=== PATIENT | female | born 1950 | race Caucasian/White ===

== ENCOUNTER → 2023-05-16 09:54 | Outpatient (REF) | payer MEDICARE, SELFPAY | LOC: WDC 09:54 | PROVIDERS: ATTENDING PHYSICIAN Obstetrics & Gynecology; FAMILY PHYSICIAN Family Medicine | DX: R92.8 Other abnormal and inconclusive findings on diagnostic imaging of breast (principal) | CPT/HCPCS: 76642 ==

== ENCOUNTER → 2023-05-18 13:04 | Outpatient (REF) | payer MEDICARE, SELFPAY | LOC: MRI 13:04 | PROVIDERS: ATTENDING PHYSICIAN Physical Medicine & Rehabilitation Pain Medicine; FAMILY PHYSICIAN Family Medicine | DX: M17.0 Bilateral primary osteoarthritis of knee (principal) | CPT/HCPCS: 73721 ==

== ENCOUNTER → 2023-05-25 06:46 | Outpatient (REF) | payer MEDICARE, SELFPAY ==
--- NOTE | 2023-05-25 09:41 | OID.BR.INTR ---
[facility] Breast Navigator - Initial
- -
Date of Contact: 05/25/23
Met with patient. Patient given written information on navigator services and support services available at [facility]. Will follow up as needed per protocol.
== END ==
LOC: WDC 06:46
PROVIDERS: ATTENDING PHYSICIAN Obstetrics & Gynecology; FAMILY PHYSICIAN Family Medicine
DX: R92.1 Mammographic calcification found on diagnostic imaging of breast (principal); R92.8 Other abnormal and inconclusive findings on diagnostic imaging of breast
CPT/HCPCS: 88305; 19081; 76098; 88341; 88342; 88360; A4648

== ENCOUNTER 2023-07-01 12:25 | Emergency (ER) | payer MEDICARE, SELFPAY ==
[2023-07-01 12:32] VITALS: BP 127/79
[2023-07-01 13:05] VITALS: BMI 33.5
--- NOTE | 2023-07-01 13:48 | ED.SKININJ ---
HPI-Injury
General
Chief Complaint: Eye Problems
Source: patient
Exam Limitations: none
Time Seen by Provider: 07/01/23 13:32
Travel History
Have you had any contact with someone who has COVID-19?: No
Do you have any symptoms of coronavirus? Fever > 100 degrees, chills, cough, shortness of breath, sore throat, loss of taste or smell, muscle aches, or headache?: No
History of Present Illness-Injury
Initial Injury comments:
72 year old female presents with redness to the right eyelid starting today. This was preceded by similar redness to the left eyelid. She was using warm compresses and she believes she had a stye on her left side that is resolving but now has 1 on
the right side. She denies any new vision change. She is due for lumpectomy this Sunday and this is concerning that she may be prohibited from having her surgery because of this. No fever. She is nondiabetic. No other complaints at this time
Past History
Past History
ED Past Medical History: Cancer, GERD, NIDDM and Other
ED Past Surgical History: Cardiac (Pacemaker) and Other (Hysterectomy, partial thyroidectomy, lipoma resection from right shoulder)
Social History
Tobacco: Non-smoker
Alcohol: None
Drug: None
Personal:
Living: with family
Employment: Disabled
Phy Exam
Physical Exam
Physical Exam:
General: Well-appearing female no acute respiratory distress
HEENT: Normocephalic right inferior lid slightly erythematous and swollen. Eversion of lid provides a papule noted on the mucosal this at the base of the eyelash. No periorbital swelling. No proptosis. Extraocular motions are painless and
intact. Surrounding skin is without fluctuance or induration
Course
Orders/Labs/Results
Orders:
Orders
07/01/23 14:28
Gentamicin [Genoptic 0.3% Eye Drops] See Dose Instructions OPHTH NOW STA
Vital Signs
Initial and Last Documented VS:
Initial Vital Signs
Temp Pulse Resp BP Pulse Ox
98.9 F 66 18 127/79 97
07/01/23 12:32 07/01/23 12:32 07/01/23 12:32 07/01/23 12:32 07/01/23 12:32
Last Documented Vital Signs
Temp Pulse Resp BP Pulse Ox
98.9 F 66 18 127/79 97
07/01/23 12:32 07/01/23 12:32 07/01/23 12:32 07/01/23 12:32 07/01/23 12:32
MDM/Problems Addressed
Differential Diagnosis Includes:
Suspect underlying stye to the right eye. Will recommend continued warm compresses. Consider antibiotic drops to cover. Patient concerned that this may prohibit her from having her lumpectomy this Sunday in 2 days. Reached out to breast surgery
for notifications.
*Critical Care Note
Total Time (30-74mins, 75-104mins- exclusive of procedures): Not Applicable
ED Attending Note
-
Portions of this chart may have been created with voice recognition software.� Occasional wrong word or��sound alike� substitutions may have occurred due to the inherent limitations of voice recognition software.
Discharge Plan
Departure
Patient Disposition: Home (Routine Discharge)
Date of Disposition: 07/01/23
Time of Disposition: 14:34
Patient with high blood pressure during this ER visit?: No
Discharge Problem:
Hordeolum externum (stye)
Instructions: Stye (hordeolum)
Prescriptions:
No Action
furosemide 40 MG tablet
40 mg PO DAILY
cetirizine 10 MG tablet
10 mg PO DAILY
lamotrigine 100 MG tablet
300 mg PO DAILY
esomeprazole magnesium [Nexium] 20 MG capsule,delayed release(DR/EC)
20 mg PO Q48H
vilazodone [Viibryd] 40 MG tablet
40 mg PO DAILY
levothyroxine [Synthroid] 150 mcg Tablet
150 mcg PO DAILY
atorvastatin
PO DAILY
tramadol 50 mg tablet
50 mg PO Q6HPRN PRN (Reason: severe pain/breakthrough pain) Qty: 12 0RF
acetaminophen [Tylenol Extra Strength] 500 mg tablet
1,000 mg PO Q6HPRN PRN (Reason: mild pain) Qty: 1 0RF
ibuprofen 200 mg tablet
400 mg PO Q6HPRN PRN (Reason: moderate pain) Qty: 1 0RF
tramadol 50 mg tablet
50 mg PO Q6HPRN PRN (Reason: severe pain/breakthrough pain) Qty: 12 0RF
Referrals:
Antolin Borja DO [Family Provider] -
Activity Restrictions/Additional Instructions:
Continue with warm compresses to both eyes. Unfortunately we are unable to get a hold of the breast surgeon today. If you want a hold off on the drop until tomorrow until you can talk to them this is reasonable.
Interventions
Interventions:
*Risk Screen - Suicide Last Done: 07/01/23 12:32
*General Assessment Last Done: 07/01/23 12:32
*Neglect/Abuse Screening Last Done: 07/01/23 12:32
ED- Fall Risk Assessment Last Done: 07/01/23 13:05
*ED COVID-19 Vaccine History Last Done: 07/01/23 13:05
*Nursing Disposition Last Done: 07/01/23 15:03
Discharge Date and Time
Discharge Date/Time: 07/01/23 14:50
Print Language: VIETNAMESE
--- NOTE | 2023-07-01 14:40 | EDRN ---
Reviewed discharge instructions with patient. Verbalized understanding. Ambulated with steady gait to the lobby.
[2023-07-01] MEDS: GENOPTIC 0.3% EYE DROPS 1 DROP OPHTH (14:41)
== END 2023-07-01 14:50 | disposition home or self-care (01) ==
LOC: EMR 12:25
PROVIDERS: EMERGENCY PHYSICIAN Emergency Medicine; FAMILY PHYSICIAN Family Medicine
DX: H00.013 Hordeolum externum right eye, unspecified eyelid (principal); E11.9 Type 2 diabetes mellitus without complications; K21.9 Gastro-esophageal reflux disease without esophagitis; Z95.0 Presence of cardiac pacemaker; Z85.9 Personal history of malignant neoplasm, unspecified
CPT/HCPCS: 99283

== ENCOUNTER → 2023-07-02 11:02 | Outpatient (REF) | payer MEDICARE, SELFPAY | LOC: WDC 11:02 | PROVIDERS: ATTENDING PHYSICIAN Surgery | DX: C50.411 Malignant neoplasm of upper-outer quadrant of right female breast (principal) | CPT/HCPCS: 19281; 38792; A4648; A9541 ==

== ENCOUNTER → 2023-07-03 07:42 | Outpatient (REF) | payer MEDICARE, SELFPAY | LOC: WDC 07:42 | PROVIDERS: ATTENDING PHYSICIAN Surgery | DX: C50.411 Malignant neoplasm of upper-outer quadrant of right female breast (principal) | CPT/HCPCS: 88305; 88307; 88332; 76098; 88331; 88341; 88342 ==

== ENCOUNTER → 2024-06-04 12:06 | Outpatient (REF) | payer MEDICARE, SELFPAY | LOC: HWWDC 12:06 | PROVIDERS: ATTENDING PHYSICIAN Family Medicine; REFERRING PHYSICIAN Obstetrics & Gynecology | DX: Z12.31 Encounter for screening mammogram for malignant neoplasm of breast (principal) | CPT/HCPCS: 77063; 77067 ==

== ENCOUNTER 2024-06-12 13:11 | Emergency (ER) | payer MEDICARE, SELFPAY ==
[2024-06-12] VITALS (7 sets, daily range): BP systolic 108–130; BP diastolic 53–86; BMI 36.7
[2024-06-12 13:44] LABS: % Basophils 0.9 % (0-2); % Eosinophils 3.2 % (0-6); % Immature Granulocytes 0.2 % (0-0.5); % Lymphocytes 35.5 % (20.5-51.1); % Monocytes 10.2 % (1.7-9.3); Absolute Basophils 0.1 10^3/uL (0-0.2); Absolute Eosinophils 0.2 10^3/uL (0-0.7); Absolute Monocytes 0.6 10^3/uL (0.1-0.6); Absolute Neutrophils 2.8 10^3/uL (1.4-6.5); Hematocrit 39.4 % (37.0-47.0); Hemoglobin 13.1 g/dL (12.0-16.0); Mean Corp Hgb Conc. 33.2 g/dL (33.0-37.0); Mean Corpuscular Hgb 28.5 pg (27.0-31.0); Mean Corpuscular Volume 85.7 fL (81.0-99.0); Mean Platelet Volume 9.3 fL (7.4-10.4); Nucleated Red Blood Cells % 0 %; Platelet Count 268 10^3/uL (130-400); Red Cell Dist. Width 13.2 % (11.5-14.5); White Blood Cell Count 5.7 10^3/uL (4.8-10.8)
[2024-06-12 13:52] LABS: ALT (SGPT) 15 U/L (0-35); AST (SGOT) 21 U/L (14-36); Albumin 4.2 g/dl (3.5-5.0); Alkaline Phosphatase 122 U/L (38-126); Blood Urea Nitrogen 15 mg/dl (7-17); Calcium 9.5 mg/dl (8.4-10.2); Carbon Dioxide 26 mmol/L (22-30); Chloride 105 mmol/L (98-107); Glucose 133 mg/dl (70-99); Potassium 3.8 mmol/L (3.5-5.1); Sodium 140 mmol/L (135-145); Total Bilirubin 0.7 mg/dl (0.2-1.3); Total Protein 6.4 g/dl (6.3-8.2); eGFR > 60.00
[2024-06-12 14:03] LABS: NT-proBNP 150 pg/ml; Troponin I < 0.012 ng/ml
--- NOTE | 2024-06-12 14:55 | ED.GENMED ---
History of Present Illness
<Ta Rodgers PA-C - Last Filed: 06/12/24 17:47>
General
Chief Complaint: Breathing Problem
Source: patient
Exam Limitations: none
Time Seen by Provider: 06/12/24 14:17
History of Present Illness
History of Present Illness:
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 Shortness of breath is worsening over the past 2 days. No associated chest pain. She also notes generalized fatigue.
She denies a cough or leg swelling. No abdominal pain. No nausea or vomiting. No back pain. No other complaints.
Past History
<Ta Rodgers PA-C - Last Filed: 06/12/24 17:47>
Past History
ED Past Medical History: Cancer, GERD, NIDDM and Other
ED Past Surgical History: Cardiac (Pacemaker) and Other (Hysterectomy, partial thyroidectomy, lipoma resection from right shoulder)
Social History
Tobacco: Non-smoker
Alcohol: None
Drug: None
Personal:
Living: with family
Employment: Disabled
Phy Exam
<BONNIE Lopez Last Filed: 06/12/24 17:47>
Physical Exam
Physical Exam:
General: Well-appearing female no acute respiratory distress
HEENT: Normocephalic atraumatic
Heart: Regular rate and rhythm
Lungs: Clear no wheeze
Abdomen is soft nontender nondistended no guarding or rebound
Extremities: No cyanosis
Skin: Warm, no rash
Neuro: Alert and oriented no facial asymmetry good strength
Scores
<Gopal Larios Jr., PA-C - Last Filed: 06/12/24 19:05>
Heart Failure Risk
Heart Failure Risk Score: Not Applicable
Course
<Ta Rodgers PA-C - Last Filed: 06/12/24 17:47>
Orders/Labs/Results
Orders:
Orders
06/12/24 13:16
Electrocardiogram (*1) Urgent
Reason for Study: Shortness of Breath
EKG- Treatment ONCE
06/12/24 13:26
Complete Blood Count/With Diff Urgent
Comprehensive Metabolic Panel Urgent
Pro-BNP [NT-proBNP] Urgent
Troponin I Urgent
06/12/24 14:36
CT Chest PE Study Urgent
Comment:
Reason For Exam: sob
06/12/24 14:53
COVID-19 Antigen Urgent
Source: Nasal Swab
Influenza A+B Rapid Molecular Urgent
GURPREET Source: Nasal Swab
Specimen Description:
Abnormal Lab Results
06/12/24
13:26
Monocytes % 10.2 H %
(1.7-9.3)
Glucose 133 H mg/dl
(70-99)
06/12/24 13:26
06/12/24 13:26
Vital Signs
Initial and Last Documented VS:
Initial Vital Signs
Temp Pulse Resp BP Pulse Ox
98.8 F 89 18 108/61 96
06/12/24 13:13 06/12/24 13:13 06/12/24 13:13 06/12/24 13:13 06/12/24 13:13
Last Documented Vital Signs
Temp Pulse Resp BP Pulse Ox
98.8 F 68 15 127/63 94
06/12/24 13:13 06/12/24 18:00 06/12/24 17:45 06/12/24 18:00 06/12/24 17:45
<Gopal Larios Jr., PA-C - Last Filed: 06/12/24 19:05>
Orders/Labs/Results
Orders:
Orders
06/12/24 13:16
Electrocardiogram (*1) Urgent
Reason for Study: Shortness of Breath
EKG- Treatment ONCE
06/12/24 13:26
Complete Blood Count/With Diff Urgent
Comprehensive Metabolic Panel Urgent
Pro-BNP [NT-proBNP] Urgent
Troponin I Urgent
06/12/24 14:36
CT Chest PE Study Urgent
Comment:
Reason For Exam: sob
06/12/24 14:53
COVID-19 Antigen Urgent
Source: Nasal Swab
Influenza A+B Rapid Molecular Urgent
GURPREET Source: Nasal Swab
Specimen Description:
Abnormal Lab Results
06/12/24
13:26
Monocytes % 10.2 H %
(1.7-9.3)
Glucose 133 H mg/dl
(70-99)
06/12/24 13:26
06/12/24 13:26
Vital Signs
Initial and Last Documented VS:
Initial Vital Signs
Temp Pulse Resp BP Pulse Ox
98.8 F 89 18 108/61 96
06/12/24 13:13 06/12/24 13:13 06/12/24 13:13 06/12/24 13:13 06/12/24 13:13
Last Documented Vital Signs
Temp Pulse Resp BP Pulse Ox
98.8 F 68 15 127/63 94
06/12/24 13:13 06/12/24 18:00 06/12/24 17:45 06/12/24 18:00 06/12/24 17:45
Martinlt;Ta Rodgers PA-C - Last Filed: 06/12/24 17:47>
MDM/Problems Addressed
Differential Diagnosis Includes:
Shortness of breath and fatigue. Not hypoxic vital signs are stable nontoxic on appearance
Question volume overload versus anemia versus heart failure versus PE.
Chest PE ordered. Labs ordered
<Gopal Larios Jr., PA-C - Last Filed: 06/12/24 19:05>
*Critical Care Note
Total Time (30-74mins, 75-104mins- exclusive of procedures): Not Applicable
<Gopal Larios Jr., PA-C - Last Filed: 06/12/24 19:05>
Update Note
Update Note:
1900: Patient reassessed and claimed that she is feeling well at rest vital signs are normal here labs unremarkable CT scan without emergent findings incidental findings of hiatal hernia and scarring were discussed with the patient. Patient was
ambulated here and did not drop below 88%. She still would like to go home and will follow-up closely with cardiology. Return precautions given.
ED Attending Note
<Ta Rodgers PA-C - Last Filed: 06/12/24 17:47>
-
Portions of this chart may have been created with voice recognition software.� Occasional wrong word or��sound alike� substitutions may have occurred due to the inherent limitations of voice recognition software.
Discharge Plan
Departure
Patient Disposition: Home (Routine Discharge)
Date of Disposition: 06/12/24
Time of Disposition: 19:02
Patient with high blood pressure during this ER visit?: No
Condition: Good
Covid-19: Not Applicable
Discharge Problem:
Fatigue, Shortness of breath
Instructions: *DCA Heart Failure Instructions
Prescriptions:
No Action
furosemide 40 MG tablet
40 mg PO DAILY
cetirizine 10 MG tablet
10 mg PO DAILY
lamotrigine 100 MG tablet
300 mg PO DAILY
esomeprazole magnesium [Nexium] 20 MG capsule,delayed release(DR/EC)
20 mg PO Q48H
vilazodone [Viibryd] 40 MG tablet
40 mg PO DAILY
levothyroxine [Synthroid] 150 mcg Tablet
150 mcg PO DAILY
atorvastatin
PO DAILY
tramadol 50 mg tablet
50 mg PO Q6HPRN PRN (Reason: severe pain/breakthrough pain) Qty: 12 0RF
acetaminophen [Tylenol Extra Strength] 500 mg tablet
1,000 mg PO Q6HPRN PRN (Reason: mild pain) Qty: 1 0RF
ibuprofen 200 mg tablet
400 mg PO Q6HPRN PRN (Reason: moderate pain) Qty: 1 0RF
tramadol 50 mg tablet
50 mg PO Q6HPRN PRN (Reason: severe pain/breakthrough pain) Qty: 12 0RF
Referrals:
Antolin Borja DO [Family Provider] -
Activity Restrictions/Additional Instructions:
You came to the emergency department today with concerns of fatigue shortness of breath. Here you had a reassuring assessment. It is important follow-up closely with cardiology. Return for any worsening, new or concerning symptoms.
Interventions
Interventions:
*Risk Screen - Suicide Last Done: 06/12/24 13:13
*General Assessment Last Done: 06/12/24 13:13
*Neglect/Abuse Screening Last Done: 06/12/24 13:13
*ED- Fall Risk Assessment Last Done: 06/12/24 14:24
*ED COVID-19 Vaccine History Last Done: 06/12/24 14:24
ED- Cardiac Assessment Last Done: 06/12/24 14:25
ED- Pulmonary Assessment Last Done: 06/12/24 14:25
Discharge Date and Time
Print Language: URDU
[2024-06-12 15:27] LABS: COVID-19 Antigen Negative (Negative)
== END 2024-06-12 19:16 | disposition home or self-care (01) ==
LOC: EMR 13:11
PROVIDERS: Physician Assistant; Student in an Organized Health Care Education/Training Program; EMERGENCY PHYSICIAN Emergency Medicine; FAMILY PHYSICIAN Family Medicine
DX: R53.83 Other fatigue (principal); R06.02 Shortness of breath; K44.9 Diaphragmatic hernia without obstruction or gangrene; E11.9 Type 2 diabetes mellitus without complications; Z90.710 Acquired absence of both cervix and uterus; Z85.3 Personal history of malignant neoplasm of breast; Z95.0 Presence of cardiac pacemaker; Z11.52 Encounter for screening for COVID-19
CPT/HCPCS: 99284; 71275; 80053; 83880; 84484; 85025; 87502; 87811; 93005; Q9967

== ENCOUNTER → 2024-06-18 13:54 | Outpatient (REF) | payer MEDICARE, SELFPAY | LOC: REG 13:54 | PROVIDERS: ATTENDING PHYSICIAN Nurse Practitioner Family | DX: R05.3 Chronic cough (principal) | CPT/HCPCS: 71046 ==

== ENCOUNTER 2024-07-01 16:59 | Emergency (ER) | payer SELFPAY ==
[2024-07-01 17:10] VITALS: BP 134/41
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
== END 2024-07-01 19:02 | disposition home or self-care (01) ==
LOC: EMR 16:59
PROVIDERS: EMERGENCY PHYSICIAN Emergency Medicine; FAMILY PHYSICIAN Family Medicine
DX: S99.912A Unspecified injury of left ankle, initial encounter (principal); S99.922A Unspecified injury of left foot, initial encounter; M79.89 Other specified soft tissue disorders; V43.62XA Car passenger injured in collision with other type car in traffic accident, initial encounter; G89.29 Other chronic pain; E03.9 Hypothyroidism, unspecified; E11.9 Type 2 diabetes mellitus without complications; E78.5 Hyperlipidemia, unspecified; Z95.0 Presence of cardiac pacemaker; Z90.710 Acquired absence of both cervix and uterus
CPT/HCPCS: 99283; 73610; 73630

== ENCOUNTER → 2024-07-15 14:04 | Outpatient (REF) | payer MEDICARE, SELFPAY | LOC: RCS 14:04 | PROVIDERS: ATTENDING PHYSICIAN Physician Assistant Medical; FAMILY PHYSICIAN Family Medicine | DX: R06.09 Other forms of dyspnea (principal); I35.1 Nonrheumatic aortic (valve) insufficiency | CPT/HCPCS: 93306 ==

== ENCOUNTER 2024-08-28 22:42 | Emergency (ER) | payer MEDICARE, SELFPAY ==
[2024-08-28 22:45] VITALS: BP 122/70
[2024-08-29 02:29] VITALS: BMI 44.7
[2024-08-29] MEDS: PERCOCET 5/325 1 TABLET PO (03:15)
[2024-08-29 03:17] VITALS: BP 119/54
--- NOTE | 2024-08-29 03:21 | ED.MUSCINJ ---
HPI-Injury
General
Chief Complaint: Musculo-Skeletal Complaint
Source: patient
Exam Limitations: none
Time Seen by Provider: 08/29/24 03:00
History of Present Illness-Injury
Initial Injury comments:
Pleasant 74-year-old female presents with right knee pain. She states that she was pulling on her compression stockings when her elbow 'went into her knee '. She states that the pain was severe. states that she has not been able to
ambulate with this. Pain is increased throughout the day.
Past History
Past History
ED Past Medical History: Cancer, GERD, NIDDM and Other
ED Past Surgical History: Cardiac (Pacemaker) and Other (Hysterectomy, partial thyroidectomy, lipoma resection from right shoulder)
Social History
Tobacco: Non-smoker
Alcohol: None
Drug: None
Personal:
Living: with family
Employment: Disabled
Phy Exam
General Physical Exam
General Presentation: well appearing and mild distress
General age: appears stated age
General Skin: warm and dry
General Habitus: elderly and obese
General Mental: alert
General Hydration: appears well hydrated
Musculoskeletal Exam
Musculoskeletal Exam: neuro vasc intact and other (Slight ecchymosis medial side of the right knee)
Skin Exam
Skin Exam: normal color and warm/dry
Psychiatric Exam
Psychiatric Exam: normal mood/affect
Injury Course
Orders/Labs/Results
Orders:
Orders
08/29/24 00:01
CR Knee- Right 4 Or More View* Urgent
Reason For Exam: pain
08/29/24 03:09
Oxycodone/Acetaminophen [Percocet 5/325] 1 tablet PO NOW STA
08/29/24 04:06
US Legs, Right [US Periph Venous LOWER Ext RT] Urgent
Comment:
Reason For Exam: pain
08/29/24 05:57
Diazepam [Valium] 5 mg PO NOW STA
Ketorolac [Toradol] 30 mg IM NOW STA
MDM/Problems Addressed
Differential Diagnosis Includes:
Sciatica, knee contusion, blood clot
MDM/Problems Addressed:
74-year-old female presents with right knee pain after hitting it with her elbow while putting on compression stockings.
Update Note
Update Note:
X-ray of the knee negative, ultrasound negative
After pain medications patient is able to move her leg without significant pain. She states that she still has an ache but feeling much better. She wishes to be discharged home. Discussed return to ER instructions with the patient.
ED Attending Note
-
Portions of this chart may have been created with voice recognition software.� Occasional wrong word or��sound alike� substitutions may have occurred due to the inherent limitations of voice recognition software.
Discharge Plan
Departure
Patient Disposition: Home (Routine Discharge)
Date of Disposition: 08/29/24
Time of Disposition: 06:39
Patient with high blood pressure during this ER visit?: Yes
Condition: Good
Discharge Problem:
Musculoskeletal limb pain
Instructions: Muscle and Bone Pain (DC), Using Cold for Pain, BLOOD PRESSURE
Prescriptions:
New
cyclobenzaprine 10 mg tablet
10 mg PO BID PRN (Reason: pain) Qty: 10 0RF
oxycodone-acetaminophen [Percocet] 5-325 mg tablet
1 tab PO Q6HPRN PRN (Reason: pain) Qty: 10 0RF
No Action
furosemide 40 MG tablet
40 mg PO DAILY
cetirizine 10 MG tablet
10 mg PO DAILY
lamotrigine 100 MG tablet
300 mg PO DAILY
esomeprazole magnesium [Nexium] 20 MG capsule,delayed release(DR/EC)
20 mg PO Q48H
vilazodone [Viibryd] 40 MG tablet
40 mg PO DAILY
levothyroxine [Synthroid] 150 mcg Tablet
150 mcg PO DAILY
atorvastatin
PO DAILY
tramadol 50 mg tablet
50 mg PO Q6HPRN PRN (Reason: severe pain/breakthrough pain) Qty: 12 0RF
acetaminophen [Tylenol Extra Strength] 500 mg tablet
1,000 mg PO Q6HPRN PRN (Reason: mild pain) Qty: 1 0RF
ibuprofen 200 mg tablet
400 mg PO Q6HPRN PRN (Reason: moderate pain) Qty: 1 0RF
tramadol 50 mg tablet
50 mg PO Q6HPRN PRN (Reason: severe pain/breakthrough pain) Qty: 12 0RF
Referrals:
Antolin Borja DO [Family Provider, Family Practice]
Interventions
Interventions:
*Risk Screen - Suicide Last Done: 08/28/24 22:45
*General Assessment Last Done: 08/28/24 22:45
*Neglect/Abuse Screening Last Done: 08/28/24 22:45
*ED- Fall Risk Assessment Last Done: 08/29/24 02:29
ED-Musculoskeletal Assessment Last Done: 08/29/24 02:28
Discharge Date and Time
Print Language: URUGUAYAN
[2024-08-29 04:00] VITALS: BP 105/62
[2024-08-29] MEDS: TORADOL 30 MG IM (06:00)
[2024-08-29] MEDS: VALIUM 5 MG PO (06:00)
== END 2024-08-29 06:46 | disposition home or self-care (01) ==
LOC: EMR 22:42
PROVIDERS: EMERGENCY PHYSICIAN Student in an Organized Health Care Education/Training Program; FAMILY PHYSICIAN Family Medicine
DX: M25.561 Pain in right knee (principal); S80.01XA Contusion of right knee, initial encounter; R60.0 Localized edema; X58.XXXA Exposure to other specified factors, initial encounter; R26.2 Difficulty in walking, not elsewhere classified; E11.9 Type 2 diabetes mellitus without complications; K21.9 Gastro-esophageal reflux disease without esophagitis; E66.9 Obesity, unspecified; Z95.0 Presence of cardiac pacemaker; Z85.9 Personal history of malignant neoplasm, unspecified; Z88.2 Allergy status to sulfonamides; Z88.8 Allergy status to other drugs, medicaments and biological substances; Z91.048 Other nonmedicinal substance allergy status
CPT/HCPCS: 99284; 96372; 73564; 93971

== ENCOUNTER 2024-10-06 06:22 | Day surgery (SDC) | payer MEDICARE, SELFPAY | END 2024-10-06 10:26 | disposition home or self-care (01) | LOC: GI 06:22 | PROVIDERS: ATTENDING PHYSICIAN Internal Medicine Gastroenterology | DX: Z12.11 Encounter for screening for malignant neoplasm of colon (principal); K64.8 Other hemorrhoids; R12 Heartburn; K44.9 Diaphragmatic hernia without obstruction or gangrene; D12.2 Benign neoplasm of ascending colon; D12.5 Benign neoplasm of sigmoid colon; K63.5 Polyp of colon | CPT/HCPCS: 45385; 45380; 43235; 88305 ==